=== PATIENT | female | born 1950 | race Caucasian/White ===

== ENCOUNTER 2017-03-22 16:38 | Inpatient (IN) ==
--- NOTE | 2017-03-22 16:57 | Emergency Department Report ---
Abdominal Pain HPI - General Chief Complaint: Abdominal Pain Stated Complaint: Constipation Time Seen by Provider: 03/22/17 16:41 Source: patient Mode of arrival: ambulatory Limitations: no limitations - History of Present Illness HPI narrative: She had some trouble with abdominal pain that started in late February around the . Was not really moving her bowels. Was evaluated in ER on 03/06/17 and was diagnosed with constipation. She was taking Miralax at that time and did stop it at that time and started taking Colace twice daily. She has had a few small BM since then. Did establish at [facility] and had a follow up appointment. Was advised to start taking some fiber and to follow up. She has also been taking Senna. Today she followed up in clinic and had repeat KUB that was negative. She does have a distended abdomen so was sent to ER for evaluation. She is belching quite a bit and feels like if she drinks water it comes back up. MD complaint: abdominal pain Onset (ago): week(s) (For the last 3 weeks) Consistency: constant Location: diffuse Severity: moderate Quality: sharp Radiation: none Migration to: no migration Relieving factors: nothing Exacerbating factors: nothing Associated symptoms: nausea, constipation - Related Data Home Medications Medication Instructions Recorded Confirmed Calcium Carbonate [Calcium] 1 tab PO DAILY 03/06/17 03/22/17 Echinacea 400 mg PO DAILY 03/06/17 03/22/17 Garlic 1 each PO DAILY 03/06/17 03/22/17 Krill/Om-3/Dha/Epa/Phospho/Ast 1 each PO DAILY 03/06/17 03/22/17 [Megared [place]-3 Krill Oil Sfgl] Niacin 250 mg PO DAILY 03/06/17 03/22/17 Ibuprofen [Advil] 400 mg PO Q4H PRN 03/22/17 03/22/17 Sennosides 17.2 mg PO BID PRN 03/22/17 03/22/17 Allergies Allergy/AdvReac Type Severity Reaction Status Date / Time Penicillins Allergy Unknown Rash Verified 03/22/17 16:44 Review of Systems Constitutional: Denies: fever, chills, weakness ENT: Denies: ear pain, throat pain, congestion Cardiovascular: Denies: chest pain, palpitations, dyspnea on exertion, edema Respiratory: Denies: cough, dyspnea, wheezes Gastrointestinal: Reports: abdominal pain, nausea, vomiting, constipation. Denies: diarrhea Genitourinary: Denies: urgency, dysuria, frequency Integumentary: Denies: rash Neurological: Denies: headache, weakness, numbness, paresthesias [facility] Patient Stated Medical History Other GI Yes: constipation current Clinic Medical History (Last Reviewed 03/22/17 @ 14:49 by Sera Sharma Saadia) Hypercholesteremia (Chronic Medical) Surgical History: Tubal ligation. Tonsillectomy - Social History Smoking status: Never smoker Physical Exam - Limitations Limitations: no limitations - General General appearance: alert, in no apparent distress - Normal Exams: Neck:: Full range of motion, without adenopathy, JVD, bruits or thyromegaly Chest/Respirations:: Clear all bernard, with good airflow, and symmetry bilaterally Cardiovascular:: Regular rate and rhythm, without murmur or gallop, Pulses 2+ all extremities, capillary refill, <2 seconds all extremities Lymphatic:: No lymphadenopathy, or lymphedema noted Neurological:: Patient is alert, and oriented Psychiatric:: Patient exhibits, appropriate attention, emotion and affect - Abdominal Exam Abdominal exam: Present: distention, diminished bowel sounds. Absent: soft ( firm more in the upper abdomen), tenderness, guarding, rebound Course Vital Signs Temperature 97.6 F 03/22/17 16:44 Pulse Rate 114 H 03/22/17 16:44 Respiratory Rate 19 03/22/17 16:44 Blood Pressure 141/100 H 03/22/17 16:44 Pulse Oximetry 90 03/22/17 16:44 Temperature 97.6 F 03/22/17 16:44 Pulse Rate 114 H 03/22/17 16:44 Respiratory Rate 19 03/22/17 16:44 Blood Pressure 141/100 H 03/22/17 16:44 Pulse Oximetry 90 03/22/17 16:44 Abdominal Pain - MDM Narrative Medical decision making narrative: Did talk with Amanda regarding her CT results. I feel that given that she is not really keeping fluids down and is having such shortness of breath with ambulation, she would benefit from paracentesis sooner than as an outpatient follow up. Did discuss with Dr Britton and he will accept as OBS admission. If source is malignant should would prefer to have Onc services here in [place] as well. - Differential Diagnosis Differential diagnosis: Likely: constipation, small bowel obstruction - Lab Data Attestation: I reviewed the patient's lab results. Result diagrams: 03/22/17 17:03 03/22/17 17:03 - Radiology Data Attestation: I reviewed the patient's radiology results. CT abdomen/pelvis with IV contrast: Tiny to small pleural effusions Large amount of ascites A 7.3 x 3.8 cm complex cystic structure in the left adnexa. Considerations include a complicated cyst in the ovary and benign/malignant neoplasm. Malignant neoplasm of the left ovary leading to the ascites is a distinct possibility under appropriate clinical settings. Recommend correlation with known clinical information and prior imaging studies. Further/follow up evaluation to exclude active pathology if clinically indicated Disposition Clinical Impression: Ascites Qualifiers: Ascites type: other type Qualified Code(s): R18.8 - Other ascites Disposition: 02 To OBS [facility] [place] Condition: Stable Time of Disposition: 19:33 - Seen By: midlevel
[2017-03-22] MEDS: SALINE FLUSH 10ml SYRINGE IVF PRN ×3 (17:02→20:48)
[2017-03-22] MEDS ORDERED: MORPHINE SULFATE 4mg INJECTION IVP ONE (17:22)
[2017-03-22] MEDS ORDERED: IOHEXOL 300mg/ml 100ml INJECTION ONE (17:28)
[2017-03-22] MEDS ORDERED: NS 100 ML ONE (17:28)
[2017-03-22] MEDS ORDERED: SALINE FLUSH 10ml SYRINGE ONE (17:28)
[2017-03-22] MEDS ORDERED: SENNA + DOCUSATE TABLET PO PRN (20:33)
[2017-03-22] MEDS ORDERED: ACETAMINOPHEN 325 MG TABLET PO PRN (20:33)
[2017-03-22] MEDS ORDERED: Bisacodyl EC TAB 5 MG TABLET PO PRN (20:33)
[2017-03-22] MEDS: D5-1/2NS 1,000 ML IV SCH (20:49)
[2017-03-22 21:18] VITALS: BMI 34.4
--- NOTE | 2017-03-22 21:44 | History & Physical Report ---
History of Present Illness Date: 03/22/17 Chief complaint: abominal distention HPI: The pt is an otherwise healthy lady who started having a sudden onset of abdominal distention and bloating starting on 03/02. The abdomin quickly became more and more distended associated with abdominal pain, constant, dull achy pain, radiating to the back, better with warm compresses. She also has been having 10 wieght gain, nausea and frequent vomiting, and loose stools but also constipation. The pt saw her PCP, Adelaida Kwok, who prescribed laxatives and ordered a KUB on 03/18 and again today 03/22. The pt was then refered to the ER for further evaluation. Review of Systems - Constitutional Constitutional: Present: anorexia, fatigue, weight gain. Absent: night sweats - EENMT Eyes: Absent: blurry vision, change in vision - Cardiovascular Cardiovascular: Present: dyspnea on exertion, edema. Absent: chest pain Vascular: Absent: pedal edema - Respiratory Respiratory: Present: dyspnea, dyspnea on exertion. Absent: cough - Gastrointestinal Gastrointestinal: Present: abdominal pain, change in bowel habits, change in stool character, constipation, diarrhea, early satiety, vomiting - Musculoskeletal Musculoskeletal: Present: back pain - Integumentary/Breasts Breasts: change in shape - Neurological Neurological: Present: paresthesias, weakness PFSH Patient Stated Medical History Other GI Yes: constipation current Clinic Medical History (Last Reviewed 03/22/17 @ 14:49 by Sera Sharma Saadia) Hypercholesteremia (Chronic Medical) Surgical History: Tubal ligation. Tonsillectomy - Social History Smoking status: Never smoker Substance use type: does not use Alcohol intake frequency: does not drink [facility] Household members: family Current occupational status: unemployed Medications Home Medications Medication Instructions Recorded Confirmed Type Calcium Carbonate [Calcium] 1 tab PO DAILY 03/06/17 03/22/17 History Echinacea 400 mg PO DAILY 03/06/17 03/22/17 History Garlic 1 each PO DAILY 03/06/17 03/22/17 History Krill/Om-3/Dha/Epa/Phospho/Ast 1 each PO DAILY 03/06/17 03/22/17 History [Megared [place]-3 Krill Oil Sfgl] Niacin 250 mg PO DAILY 03/06/17 03/22/17 History Ibuprofen [Advil] 400 mg PO Q4H PRN 03/22/17 03/22/17 History Sennosides 17.2 mg PO BID PRN 03/22/17 03/22/17 History Allergies Allergy/AdvReac Type Severity Reaction Status Date / Time Penicillins Allergy Unknown Rash Verified 03/22/17 16:44 Exam Vital Signs: Temperature 97.5 F 03/22/17 20:44 Pulse Rate 104 H 03/22/17 20:44 Respiratory Rate 22 03/22/17 20:44 Blood Pressure 137/92 H 03/22/17 20:00 Pulse Oximetry 91 03/22/17 20:44 Height/Weight/BMI: Height 1.45 m Weight 72.2 kg Body Mass Index 34.4 - Constitutional Present: no acute distress - Routine HEENT Exam Head: Present: normocephalic - Routine Neck Exam Present: supple - Routine Respiratory Exam Present: dyspnea, CTA bilaterally. Absent: accessory muscle use - Routine Cardiovascular Exam Present: RRR, no murmur - Routine Abdominal Exam Present: soft, normoactive bowel sounds, distended, firm. Absent: rebound, guarding - Routine Extremities Exam Present: no edema. Absent: clubbing, edema Results - Labs CBC & Chem 7: 03/22/17 17:03 03/22/17 17:03 Assessment and Plan (1) Ovarian cystic mass Current visit: Yes Status: Acute (2) Ascites Current visit: Yes Status: Acute Assessment and Plan: The rapid fluid gain and distention is concerning, will order paracentesis in am , as well as repeating labs, supplemental oxygen as needed, IV narcotics for pain controll and antiemetics. CT abd reviewed. consider oncology consult for evaluation and discussion with family DVT Prophylaxis: SCD's, SQ Heparin Resuscitation Status: Full Code - Physician Narrative Narrative: Date: 03/22/17 Time: 2140 Hospital Course Summary Disclaimer: The visit summary below is not to be considered part of the above Progress Note.
[2017-03-22] MEDS: MORPHINE SULFATE 4mg INJECTION IVP PRN (21:46)
[2017-03-22] MEDS: ONDANSETRON 4 MG/2 ML INJECTION IVP PRN (22:20)
[2017-03-23] MEDS: ONDANSETRON 4 MG/2 ML INJECTION IVP PRN (04:49)
[2017-03-23] MEDS: MORPHINE SULFATE 4mg INJECTION IVP PRN ×4 (04:56→20:04)
[2017-03-23] MEDS: D5-1/2NS 1,000 ML IV SCH (07:02)
--- NOTE | 2017-03-23 08:31 | CT Scan Report ---
Indication: abdominal pain PROCEDURE: CT abdomen pelvis w con: Encounter: Initial Comparison: 03/18/2017 Technique: Axial CT images were performed through the abdomen and pelvis after the administration of intravenous contrast. Coronal and sagittal two-dimensional reformats. Automated Exposure Control and Iterative Reconstruction dose reducing techniques were utilized. Contrast: Omnipaque 300 100 mL Findings: Small right and trace left pleural effusions with mild compressive atelectasis in both lower lobes. There is fluid tracking through a posterior diaphragmatic defect into the posterior mediastinum. Large amount of abdominal ascites causing displacement of the solid organs and bowel loops. The liver shows calcified lesion in the posterior right lobe which could be due to old trauma or infection. The gallbladder is difficult to visualize given the large amount of ascites. The spleen size is normal. Small hiatal hernia. The pancreas is grossly normal. The adrenal glands and kidneys are within normal limits. No abdominal or pelvic lymphadenopathy. Bowel loops are nonobstructed. There is an irregular enhancing masslike lesion in the left adnexa measuring roughly 6.3 x 5.2 cm in size on axial image #66. Calcifications in the both adnexal regions as well. Bone windows show no obvious lytic or blastic bony lesions. Impression: Large amount of abdominal ascites tracking into the mediastinum with small pleural effusions. Given the probable left adnexal mass, this is highly concerning for malignant ascites due to an ovarian neoplasm. Diagnostic and therapeutic paracentesis are recommended. There is a preliminary report by [employer]. .
[2017-03-23] MEDS: SALINE FLUSH 10ml SYRINGE IVF PRN ×2 (08:36→10:55)
--- NOTE | 2017-03-23 11:45 | History & Physical Report ---
History of Present Illness Date: 03/23/17 HPI: The pt is an otherwise healthy lady who started having a sudden onset of abdominal distention and bloating starting on 03/02. The abdomin quickly became more and more distended associated with abdominal pain, constant, dull achy pain, radiating to the back, better with warm compresses. She also has been having 10 wieght gain, nausea and frequent vomiting, and loose stools but also constipation. The pt saw her PCP, Adelaida Kwok, who prescribed laxatives and ordered a KUB on 03/18 and again today 03/22. The pt was then refered to the ER for further evaluation. Pt denies any night sweats or weight loss. Denies any known family hx of malignancy. Denies any uterine bleeding. Denies any n/v/d, f/c, cp or sob. Please see previous H&P for complete information, i.e. PMH, SH, FH and ROS. PFSH Patient Stated Medical History Other GI Yes: constipation current Clinic Medical History (Last Reviewed 03/22/17 @ 14:49 by JOHNNIE Espinal) Hypercholesteremia (Chronic Medical) Surgical History: Tubal ligation. Tonsillectomy - Social History Smoking status: Never smoker Medications Home Medications Medication Instructions Recorded Confirmed Type Calcium Carbonate [Calcium] 1 tab PO DAILY 03/06/17 03/22/17 History Echinacea 400 mg PO DAILY 03/06/17 03/22/17 History Garlic 1 each PO DAILY 03/06/17 03/22/17 History Krill/Om-3/Dha/Epa/Phospho/Ast 1 each PO DAILY 03/06/17 03/22/17 History [Megared [place]-3 Krill Oil Sfgl] Niacin 250 mg PO DAILY 03/06/17 03/22/17 History Ibuprofen [Advil] 400 mg PO Q4H PRN 03/22/17 03/22/17 History Sennosides 17.2 mg PO BID PRN 03/22/17 03/22/17 History Allergies Allergy/AdvReac Type Severity Reaction Status Date / Time Penicillins Allergy Unknown Rash Verified 03/22/17 16:44 Exam Vital Signs: Temperature 97.4 F 03/23/17 07:44 Pulse Rate 90 03/23/17 07:28 Respiratory Rate 20 03/23/17 07:28 Blood Pressure 146/92 H 03/23/17 07:28 Pulse Oximetry 94 03/23/17 07:28 Height/Weight/BMI: Height 4 ft 9 in Weight 71.4 kg Body Mass Index 34.4 - Constitutional Present: no acute distress - Routine HEENT Exam Head: Present: normocephalic, atraumatic Eye: Present: EOMI, PERRL ENT: Present: mucous membranes moist - Routine Neck Exam Present: supple, full ROM - Routine Respiratory Exam Present: CTA bilaterally. Absent: wheezes - Routine Cardiovascular Exam Present: RRR, no murmur - Routine Abdominal Exam Present: non tender, distended. Absent: rebound, guarding - Routine Extremities Exam Present: no edema. Absent: cyanosis, clubbing - Routine Skin Exam Present: intact, dry. Absent: erythema - Routine Neurological Exam Present: alert, oriented X3 - Routine Psychiatric Exam Present: normal affect, normal thought process Results - Labs CBC & Chem 7: 03/23/17 04:56 03/23/17 04:56 Assessment and Plan (1) Ascites Current visit: Yes Status: Acute (2) Ovarian cystic mass Current visit: Yes Status: Acute - Physician Narrative Physician: other (Lukas Frazier MD) Narrative: Ovarian Mass -CT-->Left adnexal mass -Concern for malignancy -CA 125 elevated at 1470 -Will need to consult onc/surgery likely for exploratory surgery Ascites -Likely 2/2 ovarian mass -Will do paracentesis today and send for eval Moderate Hyponatremia -SIADH due to malignancy vs. Hypervolemia -Order-->Cammy, Serum Osm, Uosm -Asymptomatic, monitor for now Date: 03/23/17 Time: 1142 Hospital Course Summary Disclaimer: The visit summary below is not to be considered part of the above Progress Note. Hospital Course: 03/23/17 12:16 Pt presented with abdominal distention and was found to have ascites likely 2/2 ovarian mass. Will do paracentesis for comfort and cytology as well as contact onc/surg for exploratory surgical options.
[2017-03-23] MEDS: ALBUMIN HUMAN 50 ML IV ONE ×2 (12:24→12:40)
[2017-03-23] MEDS: ALBUMIN HUMAN 50 ML IV SCH ×5 (13:23→17:58)
[2017-03-23 14:02] VITALS: RESP 18
[2017-03-23] MEDS: HYDROCODONE/APAP 7.5 MG/325 MG TABLET PO PRN (14:11)
--- NOTE | 2017-03-23 15:26 | Ultrasound Report ---
Indication:large ascites Procedure:US paracentesis abd w/image PARACENTESIS: The procedure including the benefits, risks, and alternatives were explained in detail to the patient. All of her questions were answered. She stated that they understood and wished to proceed. Informed consent was obtained. A preprocedural timeout was performed to confirm the correct patient and procedure. Using sterile technique, local xylocaine anesthesia, and sonographic guidance throughout, a paracentesis is done from a left lateral approach. 8.6 L of straw colored fluid was taken off without complication and sent to lab. Following this, the patient was taken back to her room on the medical floor in stable condition. Impression: Successful paracentesis performed with 8.6 L of fluid removed. Valerio Smith RPA/ELEANOR performed this under my personal supervision. .
[2017-03-24] MEDS: D5-1/2NS 1,000 ML IV SCH ×3 (00:05→13:24)
[2017-03-24] MEDS: HYDROCODONE/APAP 7.5 MG/325 MG TABLET PO PRN ×2 (04:40→12:23)
[2017-03-24 08:03] VITALS: TEMP 97
[2017-03-24] MEDS ORDERED: NS 100 ML ONE (09:16)
[2017-03-24] MEDS ORDERED: SALINE FLUSH 10ml SYRINGE ONE (09:16)
[2017-03-24] MEDS ORDERED: IOHEXOL 300mg/ml 75ml INJECTION ONE (09:16)
--- NOTE | 2017-03-24 10:23 | CT Scan Report ---
Indication: work up for possible ovarian cancer PROCEDURE: CT chest w con: Encounter: Initial Comparison: None Technique: Axial CT images were performed through the chest after the administration of intravenous contrast. Coronal and sagittal two-dimensional reformats. Automated Exposure Control and Iterative Reconstruction dose reducing techniques were utilized. Contrast: Omnipaque 300 74 mL Findings: Moderate right and small left pleural effusions. Atelectasis along the right minor fissure. Lower lobe compressive atelectasis. Calcified right upper lobe granuloma. No discrete pulmonary nodules or masses. The central airways are patent. No pneumothorax. No axillary or mediastinal lymphadenopathy. Heart size is normal. No cardio effusion. The upper abdomen again shows ascites. There is severe left upper abdominal body wall and subcutaneous edema. Bone windows show no lytic or blastic osseous lesions. Impression: Bilateral pleural effusions which could be benign or malignant. No discrete pulmonary nodules or masses. .
[2017-03-24 15:24] VITALS: BP 123/70; PULSE 88; O2SAT 96
--- NOTE | 2017-03-24 16:54 | Discharge Summary ---
Discharge Information Date of admission: 03/22/17 20:33 Anticipated date of discharge: 03/24/17 Attending Physician: Lukas Frazier MD Primary care physician: Kofi Obregon MD - Discharge Diagnosis (1) Ascites Status: Acute (2) Ovarian cystic mass Status: Acute Ovarian mass with paracentesis path + for adenocarcinoma Hyponatremia - Procedures Procedures: 03.23.17 PARACENTESIS: The procedure including the benefits, risks, and alternatives were explained in detail to the patient. All of her questions were answered. She stated that they understood and wished to proceed. Informed consent was obtained. A preprocedural timeout was performed to confirm the correct patient and procedure. Using sterile technique, local xylocaine anesthesia, and sonographic guidance throughout, a paracentesis is done from a left lateral approach. 8.6 L of straw colored fluid was taken off without complication and sent to lab. Following this, the patient was taken back to her room on the medical floor in stable condition. Impression: Successful paracentesis performed with 8.6 L of fluid removed. - Laboratory Labs: Lab results 03/24/17 04:07 Sodium 132 L D Potassium 4.3 D Chloride 97 L D Carbon Dioxide 29 Anion Gap 6 BUN 14.0 Creatinine 1.0 D GFR Calculation 56 BUN/Creatinine Ratio 14 Glucose 96 Calculated Osmolality 256 L Calcium 8.6 Phosphorus 3.7 Albumin 3.4 L 03/22/17 03/23/17 17:03 04:56 WBC 10.5 8.4 RBC 5.28 H 4.88 Hgb 15.8 14.5 Hct 45.5 42.4 MCV 86.2 86.9 MCH 29.9 29.7 MCHC 34.7 34.2 RDW Std Deviation 38.8 39.0 Plt Count 446 H D 410 H MPV 9.3 L 9.5 Immature Gran % (Auto) 0.1 0.1 Neut % (Auto) 71.7 H 76.0 H Lymph % (Auto) 19.4 L 17.0 L [place] % (Auto) 6.3 6.2 Eos % (Auto) 2.0 0.5 Baso % (Auto) 0.5 0.2 Neut # (Auto) 7.5 6.4 Lymph # (Auto) 2.0 1.4 [place] # (Auto) 0.7 0.5 Eos # (Auto) 0.2 0.0 Baso # (Auto) 0.1 0.0 Abs Immat Gran (auto) 0.01 0.01 Laboratory Tests 03/23/17 04:56 INR 1.14 - Microbiology Microbiology 03/23/17 12:26 Ascites Fluid Gram Stain - Final 03/23/17 12:26 Ascites Fluid Body Fluid Culture - Preliminary No Growth After 1 Day - Radiology Radiology: Date of Exam: 03/22/17 Indication: abdominal pain PROCEDURE: CT abdomen pelvis w con: Findings: Small right and trace left pleural effusions with mild compressive atelectasis in both lower lobes. There is fluid tracking through a posterior diaphragmatic defect into the posterior mediastinum. Large amount of abdominal ascites causing displacement of the solid organs and bowel loops. The liver shows calcified lesion in the posterior right lobe which could be due to old trauma or infection. The gallbladder is difficult to visualize given the large amount of ascites. The spleen size is normal. Small hiatal hernia. The pancreas is grossly normal. The adrenal glands and kidneys are within normal limits. No abdominal or pelvic lymphadenopathy. Bowel loops are nonobstructed. There is an irregular enhancing masslike lesion in the left adnexa measuring roughly 6.3 x 5.2 cm in size on axial image #66. Calcifications in the both adnexal regions as well. Bone windows show no obvious lytic or blastic bony lesions. Impression: Large amount of abdominal ascites tracking into the mediastinum with small pleural effusions. Given the probable left adnexal mass, this is highly concerning for malignant ascites due to an ovarian neoplasm. Diagnostic and therapeutic paracentesis are recommended. Date of Exam: 03/24/17 Indication: work up for possible ovarian cancer PROCEDURE: CT chest w con: Findings: Moderate right and small left pleural effusions. Atelectasis along the right minor fissure. Lower lobe compressive atelectasis. Calcified right upper lobe granuloma. No discrete pulmonary nodules or masses. The central airways are patent. No pneumothorax. No axillary or mediastinal lymphadenopathy. Heart size is normal. No cardio effusion. The upper abdomen again shows ascites. There is severe left upper abdominal body wall and subcutaneous edema. Bone windows show no lytic or blastic osseous lesions. Impression: Bilateral pleural effusions which could be benign or malignant. No discrete pulmonary nodules or masses. - Pathology 03.23.17 Cytology Report Peritoneal Fluid Diagnosis - Adenocarcinoma History of Present Illness HPI: The pt is an otherwise healthy lady who started having a sudden onset of abdominal distention and bloating starting on 03/02. The abdomin quickly became more and more distended associated with abdominal pain, constant, dull achy pain, radiating to the back, better with warm compresses. She also has been having 10 wieght gain, nausea and frequent vomiting, and loose stools but also constipation. The pt saw her PCP, Adelaida Kwok, who prescribed laxatives and ordered a KUB on 03/18 and again today 03/22. The pt was then refered to the ER for further evaluation. Pt denies any night sweats or weight loss. Denies any known family hx of malignancy. Denies any uterine bleeding. Denies any n/v/d, f/c, cp or sob. Please see previous H&P for complete information, i.e. PMH, SH, FH and ROS. Objective Vital signs: Temperature 97.0 F 03/24/17 07:59 Pulse Rate 88 03/24/17 15:22 Respiratory Rate 18 03/24/17 15:22 Blood Pressure 123/70 03/24/17 15:22 Pulse Oximetry 96 03/24/17 15:22 Height/Weight/BMI: Height 1.45 m Weight 64.6 kg Body Mass Index 34.4 - Constitutional Present: no acute distress, well nourished, well developed - Routine HEENT Exam Head: Present: normocephalic - Routine Respiratory Exam Present: CTA bilaterally. Absent: wheezes - Routine Cardiovascular Exam Present: RRR. Absent: murmur - Routine Abdominal Exam Present: soft, normoactive bowel sounds, tenderness (mild, diffuse), non distended Comments: edema LLQ in area of paracentesis - dressing intact - Routine Extremities Exam Present: no edema, normal capillary refill - Routine Skin Exam Present: dry, warm - Routine Neurological Exam Present: alert, oriented X3 - Routine Lymphatic Exam Lymphatic: Absent: adenopathy - Routine Psychiatric Exam Present: normal affect, cooperative Hospital Course This is a general summary of the patient's hospital course. For more details refer to the complete medical record. Hospital course: Pt presented with abdominal distention and was found to have ascites likely 2/2 ovarian mass. Paracentesis was performed for comfort and cytology. Patient did well following aspiration of almost 9L of ascities. The cytology results were positive for adenocarcinoma. Dr. Frazier discussed case with Dr. Fatoumata Osman and she will see patient 03.30.17 for f-u. Time spent with patient: discharge greater than 30 minutes DVT Prophylaxis: SCD's Discharge Plan - Discharge Disposition Discharge Date: 03/24/17 Disposition: 01 Discharged Home, Self-Care *Condition: Stable Reason For Visit (Visit label in EMR): Ascites - Discharge Medications *Discharge Medications: New Hydrocodone/APAP 7.5/325 [[place] 7.5/325] 1 tab PO Q6H PRN #10 tab PRN Reason: Pain Continue Garlic 1 each PO DAILY Echinacea 400 mg PO DAILY Calcium Carbonate [Calcium] 1 tab PO DAILY Ibuprofen [Advil] 400 mg PO Q4H PRN PRN Reason: Pain Niacin 250 mg PO DAILY Sennosides 17.2 mg PO BID PRN PRN Reason: Prn Orders Discontinued Krill/Om-3/Dha/Epa/Phospho/Ast [Megared Wray-3 Krill Oil Sfgl] 1 each PO DAILY - Discharge Packet/Instructions *Diet: regular diet as tolerated *Activity: as tolerated *Pain Management/Treatment: ibuprofen 200mg 2-3 pills every 6 hours as needed for pain. Prescription pain medication if pain isn't controlled with the ibuprofen. *Wound Care: Drainage from the wound can be expected. Keep the wound covered and clean and dry until it is no longer draining. If there are changes in the area of the wound such as redness and warmth, you need to call your provider. Additional Instructions: Hold your Krill oil supplement as this can thin the blood. Take the CD of your CT scans and the copy of your pathology report with you to Dr. Osman's office. *Expected Signs/Symptoms: you may fill up with fluid again and you may have some pain in the abdomen. *Notify Physician if: you develop fever, signs of infection at the wound site, or increasing pain. *During Business Hours Contact: Call Dr. Obregon's office *After Business Hours Contact: Call Dr. Obregon's office and follow after hours instructions. *Pending Lab/Results: Will be notified - Referrals/Follow Up *Referrals/Follow Up: Fatoumata Osman MD [Physician] - (APPOITMENT WITH DR OSMAN ON 03/30 AT 10 :45 AT [facility] [place] [address] [facility] Kofi Obregon MD [Family Provider] - (end of next week appointment with dr obregon on 04/01 at 2:45.) - Patient Handouts Patient Handouts: Ovarian Cancer (GEN), Ascites (GEN) Physician Narrative - Narrative Attestation Narrative: Pt came in with new onset ascites and CT showed Ovarian mass. CA 125 was elevated and peritoneal fluids showed adenocarcinoma cells. Case was discussed with of Health system and she recommended outpatient follow up next week at her office. Pt was given directions to what to watch out for (i.e. infection, discomfort due to reaccumulation of peritoneal fluid) and was discharged home. It was also recommended that pt follow up with PCP this week. Date: 03/24/17 Time: 1800
== END 2017-03-24 18:00 | disposition home or self-care (01) | DRG 755 ==
LOC: MED 16:38 → ED 16:38 → MED 20:35
PROVIDERS: ADMIT Internal Medicine; ATTEND Internal Medicine